=== PATIENT | male | born 1965 | race Caucasian/White ===

== ENCOUNTER 2016-12-11 11:19 | Day surgery (SDC) | payer OTHER ==
--- NOTE | 2016-12-10 10:58 | HISTORY AND PHYSICAL ---
ADMITTED: 12/11/2016 HISTORY OF PRESENT ILLNESS: The patient is a 51-year-old male who describes a sharp, shooting, intense pain in his right heel. He states it has progressed to the point where he wants to have it surgically addressed. We did do a corticosteroid injection and had him do some relief padding to his [id number] orthotics which pacified the issue for some time. He states it is still very painful. MEDICAL/SURGICAL HISTORY: Past medical history includes a history of hypertension, hypercholesteremia, Raynaud's, hyperparathyroidism, low back disorder and some sleep issues. Surgical history: He had a vasectomy in 1998 and a renal stent. PRIMARY CARE PHYSICIAN: Dr. Suarez. MEDICATIONS: 1. Amphetamine/dextroamphetamine 10 mg CP 24 tablet 1 by mouth daily. 2. Amphetamine/dextroamphetamine 30 mg CP 24 tablet 1 by mouth daily. ALLERGIES: 1. REPORTS NO KNOWN DRUG OR FOOD ALLERGY. 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 He does not smoke, drinks socially. FAMILY HISTORY: Noncontributory to chief complaint. REVIEW OF SYSTEMS: A 10-point review of systems noncontributory to the chief complaint. PHYSICAL EXAMINATION: GENERAL: The patient is alert, oriented x3. HEAD AND NECK: PERRLA. Normocephalic. HEART: Regular rate and rhythm. Regular S1 and S2. No murmurs or gallops. LUNGS: Clear to auscultation. No wheezes, rhonchi, or rales. ABDOMEN: Soft, tender, nondistended. No palpable masses. Normal tones. LOWER EXTREMITY: Vascular: DP and PT pulses are palpable. Skin texture and turgor within normal limits. Subpapillary venous plexus, capillary refill is delayed consistent with the Raynaud's. Muscle strength, dorsiflexion, plantarflexion, inverters and everters are intact. NEUROLOGIC: Deep tendon reflexes and epicritic sensations are intact. EXTREMITIES: Right foot presents with some tenderness along the course of the medial and central plantar fascial bands. Noted ankle joint equinus with the knee extended and flexed. LAB/IMAGING: Imaging revealed an exostosis directly on the weightbearing surface of the os calcis, very pointed, and consistent with clinical areas of pain. Ultrasound revealed hypoechoic areas of the medial and central proximal plantar fascial bands. IMPRESSION: 1. Chronic plantar fasciitis 2. Heel spur PLAN: The patient has consented for surgical procedure consisting of an exostectomy of the heel spur and a [place] procedure and a PRP injection. There are no contraindications. Surgery is scheduled at [facility] on an outpatient basis on 12/11/2016.
--- NOTE | 2016-12-10 10:58 | HISTORY AND PHYSICAL ---
ADMITTED: 12/11/2016 HISTORY OF PRESENT ILLNESS: The patient is a 51-year-old male who describes a sharp, shooting, intense pain in his right heel. He states it has progressed to the point where he wants to have it surgically addressed. We did do a corticosteroid injection and had him do some relief padding to his [id number] orthotics which pacified the issue for some time. He states it is still very painful. MEDICAL/SURGICAL HISTORY: Past medical history includes a history of hypertension, hypercholesteremia, Raynaud's, hyperparathyroidism, low back disorder and some sleep issues. Surgical history: He had a vasectomy in 1998 and a renal stent. PRIMARY CARE PHYSICIAN: Dr. Suarez. MEDICATIONS: 1. Amphetamine/dextroamphetamine 10 mg CP 24 tablet 1 by mouth daily. 2. Amphetamine/dextroamphetamine 30 mg CP 24 tablet 1 by mouth daily. ALLERGIES: 1. REPORTS NO KNOWN DRUG OR FOOD ALLERGY. 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 He does not smoke, drinks socially. FAMILY HISTORY: Noncontributory to chief complaint. REVIEW OF SYSTEMS: A 10-point review of systems noncontributory to the chief complaint. PHYSICAL EXAMINATION: GENERAL: The patient is alert, oriented x3. HEAD AND NECK: PERRLA. Normocephalic. HEART: Regular rate and rhythm. Regular S1 and S2. No murmurs or gallops. LUNGS: Clear to auscultation. No wheezes, rhonchi, or rales. ABDOMEN: Soft, tender, nondistended. No palpable masses. Normal tones. LOWER EXTREMITY: Vascular: DP and PT pulses are palpable. Skin texture and turgor within normal limits. Subpapillary venous plexus, capillary refill is delayed consistent with the Raynaud's. Muscle strength, dorsiflexion, plantarflexion, inverters and everters are intact. NEUROLOGIC: Deep tendon reflexes and epicritic sensations are intact. EXTREMITIES: Right foot presents with some tenderness along the course of the medial and central plantar fascial bands. Noted ankle joint equinus with the knee extended and flexed. LAB/IMAGING: Imaging revealed an exostosis directly on the weightbearing surface of the os calcis, very pointed, and consistent with clinical areas of pain. Ultrasound revealed hypoechoic areas of the medial and central proximal plantar fascial bands. IMPRESSION: 1. Chronic plantar fasciitis 2. Heel spur PLAN: The patient has consented for surgical procedure consisting of an exostectomy of the heel spur and a [place] procedure and a PRP injection. There are no contraindications. Surgery is scheduled at [facility] on an outpatient basis on 12/11/2016.
[~2016-12-11] VITALS: Ht 180.3 cm; Wt 101.4 kg
[~2016-12-11 11:19] MED LIST: ADDERALL30 MG PO; CARBAMAZEPINE100 M1 PO; PERCOCET EQUIVALENT PO; PERCOCET1 TA1 PO
--- NOTE | 2016-12-11 12:25 | NUR ---
PT ADMITTED FOR SURGERY. PT CONFIRMED HIS NAME, , PLANNED PROCEDURES, SURGERY SITE AND SIDE, MEDICATIONS AND ALLERGIES, NPO STATUS AND MARKED HIS SURGICAL SITE. IV ACCESS ESTABLISHED AND BLOOD SPECIMEN DRAWN AND SENT TO LAB. PRE-OP TEACHING COMPLETED, QUESTIONS ANSWERED. WARM BLANKET FOR COMFORT.
--- NOTE | 2016-12-11 14:13 | NUR ---
PT VOIDED PRE-OP. TO OR HOLDING.
[2016-12-11] MEDS ORDERED: PERCOCET1 TA4 PO (15:40)
[2016-12-11] MEDS ORDERED: ZOFRAN4 MG PO (15:41)
--- NOTE | 2016-12-11 15:42 | NUR ---
PATIENT ARRIVED TO PACU AT 1538. SPONT RESP. AWAKE AND CONVERSING WITH STAFF. VITALS STABLE. DRESSINGS TO R FOOT CLEAN, DRY AND INTACT. TOES PINK AND WARM WITH CAP REFILL <3SEC. ABLE TO WIGGLE AND FEET TOES. WILL CONTINUE TO MONITOR.
--- NOTE | 2016-12-11 15:43 | Provider's Discharge Care Plan ---
Problem, Goal, Plan Problem List 1. Plantar fascial fibromatosis Goals: Improve function Instructions: Follow up as directed
--- NOTE | 2016-12-11 15:43 | Provider's Discharge Care Plan ---
Problem, Goal, Plan Problem List 1. Plantar fascial fibromatosis Goals: Improve function Instructions: Follow up as directed
[2016-12-11 16:07] VITALS: BP 140/97
--- NOTE | 2016-12-11 16:17 | NUR ---
PT ARRIVED AROUND 1600 VIA GURNEY FROM THE PACU. NO C/O PAIN AND NO NAUSEA. FULL SENSATION AND MOVMENET IN RIGHT TOES. VSS. RESTING W/ CALL LIGHT IN REACH.
[2016-12-11 16:20] VITALS: BP 132/96
[2016-12-11 16:38] VITALS: BP 142/97
--- NOTE | 2016-12-11 17:37 | NUR ---
QUESTIONS AND CONCERNS ANWSERED AND DISCUSSED W/ FAMILY. WENT OVER RX'S. NO C/O PAIN OR NAUSEA. VSS. PT VOIDED CLEAR YELLOW URINE. 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
--- NOTE | 2016-12-11 19:31 | OPERATIVE REPORT ---
DATE OF SURGERY: 12/11/2016 SURGEON: Jaxson Yuen DPM PREOPERATIVE DIAGNOSIS: 1. Plantar fasciitis, heel spur syndrome, right foot POSTOPERATIVE DIAGNOSIS: 1. Plantar fasciitis, heel spur syndrome, right foot PROCEDURES PERFORMED: 1. [place] fasciotomy and an open exostectomy, the right heel 2. PRP injection HEMOSTASIS: Achieved by pneumatic ankle tourniquet inflated 250 mmHg pressure. TOURNIQUET TIME: Total tourniquet time 26 minutes. MATERIALS: 4-0 Surgipro, 5 mL of PRP. INJECTABLES: 20 mL of 0.5% bupivacaine plain. COMPLICATIONS: None. CONDITION: The patient tolerated anesthesia, procedure well. INDICATIONS: The patient is a 51-year-old male with the chief complaint of chronic painful right heel. She exhausted conservative care, would like to proceed with surgical intervention. He is well aware of the planned procedure. No contraindications to surgery at this time. SURGICAL TECHNIQUE: The patient was brought to the operating room, placed on the table in a supine position. At this time, a general anesthetic was administered. A tourniquet was then placed above the right ankle. Right lower extremity was prepped and draped in normal sterile fashion. An intraoperative pause carried out for positive identification , proper limb, consent form was verified, as well as administration and delivery of 2 g of cefazolin. The foot was then exsanguinated with an [place] bandage, tourniquet was then inflated. Attention was then directed to procedure 1. Exostectomy, right heel: At this time, a vertical incision was made just proximal to the abductor hallucis muscle belly. With the aid of fluoroscopy, the hypertrophied and exostosis was visualized at site 6 and site 3, the anterior and directly inferior aspect of the heel. A [place] elevator was utilized to free up the soft tissue. At this time, a power rasp was then utilized to reduce bone spurs completely. The area was flushed. Skin edge was then reapproximated with 4-0 Surgipro. Attention was then directed to procedure 2. Radiofrequency fasciotomy via [place]: At this time, a 0.062 K-wire was then utilized to percutaneously make portals for a membrane from the proximal heal at 2 mm spacing from medial to lateral up to the drop-off for the distal aspect of the heel. Approximately 20 percutaneous holes were then created. At this time, a radiofrequency [place] wand set at 4 was then utilized under a saline drip and radiofrequency ablation of the fascia was carried out successfully. The PRP was then infiltrated and fanned in the proximal and distal plantar fascial bands. A regional anesthetic was fanned out to the posterior medial malleolus, lateral malleolus and directly to the posterior heel. Tourniquet was released with reactive hyperemia and good digital perfusion. The patient tolerated procedure without complications, left the operating room with vital signs stable. In recovery, written instructions, weightbearing with the aid of a fracture boot. Prognosis guarded. He will be discharged home in stable condition.
== END 2016-12-11 17:10 | disposition home or self-care (01) ==
LOC: SDC SRH 11:19 → SCU SRH 11:20 → SDC SRH 13:00 → OR SRH 13:00 → ACUTE2 SRH 16:07 → SDC SRH 17:10
PROVIDERS: Podiatrist
PROC: 0QBL0ZZ Excision of Right Tarsal, Open Approach (ICD-10-PCS; principal; 2016-12-11 13:00)
PROC: 0J8Q3ZZ Division of Right Foot Subcutaneous Tissue and Fascia, Percutaneous Approach (ICD-10-PCS; principal; 2016-12-11 13:00)
DX: M77.31 Calcaneal spur, right foot (principal); I10 Essential (primary) hypertension

== ENCOUNTER 2017-03-01 10:06 | Outpatient (CLI) | payer OTHER ==
[~2017-03-01 10:06] MED LIST changes: +PERCOCET1 TA4 PO; +ZOFRAN4 MG PO
== END 2017-03-02 15:47 | disposition home or self-care (01) ==
LOC: LAB SRH 10:06
DX: Z00.00 Encounter for general adult medical examination without abnormal findings (principal); I73.00 Raynaud's syndrome without gangrene; R94.31 Abnormal electrocardiogram [ECG] [EKG]
CPT/HCPCS: 90074; 92690; 95150; 98020; 98460

== ENCOUNTER 2017-03-11 11:18 | Outpatient (CLI) | payer OTHER ==
--- NOTE | 2017-03-15 18:59 | DIAGNOSTIC IMAGING REPORT ---
REFERRING PHYSICIAN/PROVIDER: Dr. Caldera ATTENDING PHYSICIAN/PROVIDER: CONSULTING TAP GRINDER: Flores Dsouza MD PROCEDURE PERFORMED: Pharmacologic stress test with myocardial perfusion imaging and quantitative gated SPECT to evaluate wall motion and left ventricular systolic function. INDICATION: ABN EKG RADIOPHARMACEUTICAL: Rest dose 10 mCi of technetium 99 sestamibi Stress dose 32 mCi of technetium 99 sestamibi PROCEDURAL DETAILS: Informed consent Lexiscan was infused per protocol. The patient had no significant ST-segment changes. No significant ectopy. ECG DATA: Resting EKG showed normal sinus rhythm, 73 beats per minute with incomplete right bundle branch block and T-wave inversions in the V1, V2, the three, and V4,. RAW DATA: Normal myocardial tracer uptake. Lung heart ratio is grossly normal. T.i.d. is normal at 1.14 QUANTITATIVE GATED SPECT: Peak stress ejection fraction is 57%. End-diastolic volume is 125 ml. No focal wall motion abnormality seen Rest ejection fraction is 58%. MYOCARDIAL PERFUSION STUDY: There is a small mild fixed apical perfusion defect consistent with apical thinning artifact. There is no evidence of ischemia or prior infarct. SSS 4 SRS 4 SDS zero IMPRESSION: 1. Normal low risk pharmacologic stress test with myocardial perfusion imaging. 2. No evidence of ischemia or prior infarct. 3. Normal wall motion and left ventricular systolic function No prior study available for comparison
== END 2017-03-11 23:00 | disposition home or self-care (01) ==
LOC: NM SRH 11:18
PROC: 4A02XM4 Measurement of Cardiac Total Activity, External Approach (ICD-10-PCS; principal; 2017-03-11)
DX: R94.31 Abnormal electrocardiogram [ECG] [EKG] (principal)